=== PATIENT | female | born 1955 | race Caucasian/White ===

== ENCOUNTER → 2017-02-14 | Outpatient (CLI) | payer OTHER, BC ==
[~2017-02-14] MED LIST: AZEL30SP NAE; CALC500T83 PO; CEPH500C2 PO; CITA20TA9 PO; FEXO1TAB46 PO; LOSA50TA6 PO; MULT-506 PO; OXYC-57 PO; OXYC1TAB3 PO
== END | disposition home or self-care (01) ==
LOC: C.RDSM 13:46
PROVIDERS: ATTEND Physical Medicine & Rehabilitation Sports Medicine
DX: M13.841 Other specified arthritis, right hand (principal)

== ENCOUNTER → 2017-05-19 | Outpatient (CLI) | payer BC ==
--- NOTE | 2017-05-19 14:21 | MAMMOGRAPHY REPORT ---
BILATERAL DIGITAL SCREENING MAMMOGRAM TOMOSYNTHESIS WITH CAD: 05/19/2017 CLINICAL HISTORY: Routine screening. Patient has no complaints. TECHNIQUE: Breast tomosynthesis in addition to standard 2D mammography was performed. Current study was also evaluated with a Computer Aided Detection (CAD) system. COMPARISON: Comparison is made to exams dated: 05/14/2016 mammogram, 04/30/2015 mammogram, 02/25/2014 ma mmogram, 12/21/2013 mammogram, 02/20/2013 mammogram, and 02/17/2012 mammogram - [facility] nter. BREAST COMPOSITION: The tissue of both breasts is heterogeneously dense, which may obscure small mas ses. FINDINGS: No suspicious masses, calcifications, or areas of architectural distortion are noted in ei ther breast. There has been no significant interval change compared to prior exams. A linear scar ma rker denotes a scar on the left upper outer breast. IMPRESSION: ACR BI-RADS CATEGORY 2: BENIGN There is no mammographic evidence of malignancy. A 1 year screening mammogram is recommended. The pa tient will receive written notification of the results. Approximately 10% of breast cancers are not detected with mammography. A negative mammographic report should not delay biopsy if a clinically suggestive mass is present. Radha Arana M.D. /:05/19/2017 08:32:00 Human Services Assistant: Malgorzata Sadler, [facility] letter sent: Normal 1/2 BI-RADS Code: ACR BI-RADS Category 2: Benign
== END | disposition home or self-care (01) ==
LOC: C.MAMM 08:01
PROVIDERS: ATTEND Family Medicine
DX: Z12.31 Encounter for screening mammogram for malignant neoplasm of breast (principal)

== ENCOUNTER 2017-05-31 07:34 | Emergency (ER) | payer BC ==
[~2017-05-31] VITALS: Ht 158.8 cm; Wt 68.4 kg
[2017-05-31 07:36] VITALS: TEMP 36.5; Ht 158.8 cm; Wt 68.4 kg
[2017-05-31] MEDS ORDERED: ONDANSETRON INJ 2 MG/ML 2 ML VIAL IV STA (07:48)
[2017-05-31] MEDS: MoRPHine SULFATE 10 MG/ML CARP/VIAL IV PRN ×2 (07:58→10:09)
--- NOTE | 2017-05-31 08:27 | DIAGNOSTIC IMAGING REPORT ---
R WRIST MIN 3 VIEWS ROUTINE HISTORY: 61 years-old Female Trauma acute right wrist pain status post trauma. Initial exam. COMPARISON: Right finger radiograph 02/14/2017 TECHNIQUE: 3 views of the right wrist. FINDINGS: There is an acute impacted and comminuted fracture of the distal radial metaphysis with fracture lines extending into the distal radioulnar joint and also the radiocarpal joint medially. Impacted fracture fragments are seen displaced 5 mm volarly and 5 mm dorsally. 4 mm lateral displacement also noted. No significant angulation. Transverse fracture involving the base of the ulnar styloid is seen with 2 mm lateral displacement. Moderate associated soft tissue swelling. Mild to moderate degenerative changes are noted throughout the wrist and hand within the triscaphe, first carpometacarpal and imaged interphalangeal joints. IMPRESSION: 1. Acute impacted and mildly displaced comminuted fracture of the distal radial metaphysis with intra-articular extension into both the distal radioulnar and radiocarpal joints with moderate soft tissue swelling. 2. Transverse mildly displaced ulnar styloid fracture. The above report was generated using voice recognition software. It may contain grammatical, syntax or spelling errors. Electronically signed by: Damien Guillermo M.D. 05/31/2017 8:25 AM Dictated Date/Time: 05/31/2017 8:21 AM
[2017-05-31] MEDS ORDERED: LOSA50TA6 PO (08:36)
[2017-05-31] MEDS ORDERED: CITA20TA9 PO (08:36)
[2017-05-31] MEDS ORDERED: FEXO1TAB46 PO (08:36)
[2017-05-31] MEDS ORDERED: XYLOCAINE 1%/SOD BICARB 20 ML VIAL INFIL ONE (09:05)
--- NOTE | 2017-05-31 10:34 | Consultant Recommendations ---
Lamp Decorator Recommendations Date of Service May 31, 2017. Lamp Decorator Recommendations Sling to right arm at all times Keep splint on right arm at all times Ice to right wrist as needed for pain/swelling Elevate right wrist/arm above heart to relieve pain/swelling open and close fingers frequently to prevent stiffness No use of right arm/hand. Please call [phone] or go to the ED with any increased pain, swelling, numbness, tingling of right hand. Follow up with Dr. Looney as instructed. Our office will call with follow up date and time. Please call [phone] with any questions, concerns or need to reschedule appointment.
--- NOTE | 2017-05-31 10:37 | Procedure Note ---
Procedure Note Date of Service May 31, 2017. Procedure Note Procedure Note: Patient was identified. I was asked to do a hematoma block of her right distal radius fracture by Dr. Guidry. Risks/complications were discussed, verbal consent obtained. Time out performed. Site marked, cleansed with alcohol. I then injected, after blood return 8 cc of 1% lidocaine without epi into right distal radius fracture site. She tolerated the injection well. I then injected 2 cc 1% lidocaine around the distal ulna to provide adequate comfort for reduction. Closed reduction performed by Dr. Guidry, please see his consultation note for further details.
[2017-05-31] MEDS ORDERED: OXYC1TAB3 PO (11:02)
--- NOTE | 2017-05-31 11:09 | ORTHOPEDIC CONSULTATION ---
DATE OF CONSULTATION: 05/31/2017 HISTORY OF PRESENT ILLNESS: Mirian is a 61-year-old female. She fell in her home earlier today on an outstretched right upper extremity. She is right hand dominant. She had pain and swelling as well as a deformity. She came to the Emergency Room and was diagnosed of a fracture. She has a history of de Quervain release done by Dr. Looney, but has no prior history of hand traumatic injuries. She denies any tingling or numbness. PAST MEDICAL HISTORY: Significant for high blood pressure and depression. PAST SURGICAL HISTORY: Tonsils, tubes tied, hysterectomy, and right wrist de Quervain tendinitis. MEDICATIONS: Citalopram, fexofenadine, and losartan. ALLERGIES: AMOXICILLIN, FISH OIL, LATEX AND PENICILLINS. PHYSICAL EXAMINATION: She has tenderness and a mild deformity of the right wrist with a healed de Quervain tendinitis scar. She has good movement of the elbow flexion and extension. I did not check forearm rotation. Her forearm and fingers are nontender. She has tenderness of the distal radius. There is a minor abrasion on the volar aspect of her wrist. Median, radial and ulnar motor and sensory functions are intact. She has arthritic nodularity of her finger interphalangeal joints with 10-20 degree loss of extension. Composite flexion is only no more than 50%. Radial pulse is 1+. Capillary refill is less than 2 seconds. DIAGNOSTIC IMAGING: Radiographs show a mildly comminuted impacted dorsally displaced distal radius fracture. She has a loss of radial height, slight bit of ulnar positive variance and dorsal tilting on the lateral view. Verbal informed consent is obtained. A preprocedure timeout was performed. Local anesthetic 1% lidocaine plain was injected for hematoma block into the distal radius and ulnar styloid fracture. After adequate analgesia and administration of intravenous pain medication, fluoroscopic guidance was utilized to reduce the fracture. With traction and reduction maneuver, the fracture does reduce; however, it is not stable in that position and tends to shorten and resume an angulated posture. A reduction is performed. Splint is applied, but the reduction is unstable. There is persistent residual shortening and tilting dorsally. Her post-reduction neurovascular exam is intact. IMPRESSION: Right distal radius fracture. PLAN: Follow up in the office to discuss further treatment, which likely will include surgical intervention. This could include internal fixation, percutaneous pinning and external fixation. These options are briefly discussed with the patient. She could leave it as is; however, there could be further settling and derangement of alignment, which could affect the long-term outcome and function of the hand. Watch out for any significant swelling, pain, numbness, tingling or other problems or questions, contact the office or go to the Emergency Room. She can take anti-inflammatory and/or a pain medication for pain. We will hold her out of work. Use a sling, elevate, and ice. Followup will be arranged in the next few days in the office. MANDY
[2017-05-31 11:15] VITALS: BP 121/72; PULSE 61; O2SAT 97
--- NOTE | 2017-05-31 14:41 | EMERGENCY ROOM VISIT NOTE ---
History Report prepared by Sarah: Anibal Jiménez Under the Supervision of: Dr. Parth Jackson M.D. First contact with patient: 07:41 Chief Complaint: WRIST PAIN Stated Complaint: FELL, RT WRIST PAIN History of Present Illness The patient is a 61 year old female who presents to the Emergency Room with complaints of sudden right wrist pain occurring prior to arrival after a fall. The patient states that she dropped her tea this morning, and she slipped on it , and she fell on her right wrist trying to brace herself. The patient states that she has a scratch on her wrist as well. She states that she did not hurt anything else. The patient additionally has a history of a De Quervain's release surgery. Pt denies LOC, headache, fevers, chills, diaphoresis, visual changes, neck pain, chest pain, breathing difficulties, nausea, vomiting, abdominal pain, back pain, melena, hematochezia, urinary symptoms, numbness, weakness, lymphadenopathy, rash, or other complaints. Source of History: patient Onset: prior to arrival Position: wrist (right) Timing: other (sudden) Review of Systems See HPI for pertinent positives and negatives. A total of ten systems were reviewed and were otherwise negative. Past Medical & Surgical Surgical Problems: (1) S/P wrist surgery Social History Smoking Status: Never Smoker Marital Status: Occupation Status: employed Current/Historical Medications Scheduled Citalopram Hydrobromide (Celexa), 20 MG PO DAILY Fexofenadine Hcl (Felicitas), 180 MG PO DAILY Losartan Potassium (Cozaar), 50 MG PO DAILY Scheduled PRN Oxycodone Ir (Roxicodone Ir), 1-2 TAB PO Q4H PRN for Severe Pain Allergies Coded Allergies: Amoxicillin (Unverified Allergy, Unknown, RASH, 05/31/17) Fish Oil (Unverified Allergy, Unknown, ., 05/31/17) Latex1 -Allergic Contact Dermititis (Verified Allergy, Unknown, HIVES, ) Penicillins (Verified Allergy, Unknown, AMOXIL--RASH, 05/31/17) Physical Exam Vital Signs Date Time Temp Pulse Resp B/P (MAP) Pulse Ox O2 Delivery O2 Flow Rate FiO2 05/31/17 11:15 61 20 121/72 97 05/31/17 10:25 60 20 120/71 97 Room Air 05/31/17 08:30 60 20 120/63 96 Room Air 05/31/17 07:36 36.5 79 20 128/76 94 Room Air Physical Exam GENERAL: Awake, alert, uncomfortable appearing, mild distress HEAD: Normocephalic, atraumatic. No bellamy sign. No raccoon eyes. EYES: Normal conjunctiva. PERRL. EARS: External ears normal. NOSE: Atraumatic OROPHARYNX: Lips, tongue, and mucosa unremarkable. No erythema or exudate. NECK: No tracheal deviation or JVD. No posterior midline tenderness. No step offs noted. RESPIRATORY: CTA bilaterally CARDIAC: Regular rate, normal rhythm. ABDOMEN: Inspection reveals no abnormalities. Soft, non distended. No tenderness to palpation. No hernias. BACK: No midline step offs or tenderness to palpation. Unremarkable. PELVIS: Stable to rock. SKIN: Normal. LYMPH: No adenopathy. MUSCULOSKELETAL: Right upper extremity: Shoulder, elbow, proximal forearm, hand , and fingers examine normally. Obvious swelling and deformity of the right wrist. Tenderness over the distal radius and snuff box. No open wounds. Tiny abrasion of the volar wrist. Left upper and both lower extremities are atraumatic. NEURO: GCS 15. Normal sensorium. No sensory or motor deficits noted. Medical Decision & Procedures ER Provider Diagnostic Interpretation: Radiology results as stated below per my review and radiologist interpretation: R WRIST MIN 3 VIEWS ROUTINE HISTORY: 61 years-old Female Trauma acute right wrist pain status post trauma. Initial exam. COMPARISON: Right finger radiograph 02/14/2017 TECHNIQUE: 3 views of the right wrist. FINDINGS: There is an acute impacted and comminuted fracture of the distal radial metaphysis with fracture lines extending into the distal radioulnar joint and also the radiocarpal joint medially. Impacted fracture fragments are seen displaced 5 mm volarly and 5 mm dorsally. 4 mm lateral displacement also noted. No significant angulation. Transverse fracture involving the base of the ulnar styloid is seen with 2 mm lateral displacement. Moderate associated soft tissue swelling. Mild to moderate degenerative changes are noted throughout the wrist and hand within the triscaphe, first carpometacarpal and imaged interphalangeal joints. IMPRESSION: 1. Acute impacted and mildly displaced comminuted fracture of the distal radial metaphysis with intra-articular extension into both the distal radioulnar and radiocarpal joints with moderate soft tissue swelling. 2. Transverse mildly displaced ulnar styloid fracture. The above report was generated using voice recognition software. It may contain grammatical, syntax or spelling errors. Electronically signed by: Damien Guillermo M.D. 05/31/2017 8:25 AM Dictated Date/Time: 05/31/2017 8:21 AM Medications Administered Medications (Trade) Dose Ordered Sig/David Route Start Time Stop Time Status Last Admin Dose Admin Morphine Sulfate (MoRPHine SULFATE INJ) 8 mg Q1H PRN IV 05/31/17 08:00 05/31/17 11:33 DC 05/31/17 10:09 8 MG Ondansetron HCl (Zofran Inj) 4 mg NOW STAT IV 05/31/17 07:48 05/31/17 07:49 DC 05/31/17 07:48 4 MG Procedure Splinting Indication: fracture Verbal consent obtained. Risks and benefits were explained with the usual customary discussion. The injured extremity was identified. The patient was prepped and measured for the placement of a volar ortho-glass splint. Splint applied in the standard fashion over a layer of webril and secured using an elastic bandage. Set into a position of function. Normal neurovascular status after placement verified by me. The patient tolerated the procedure well and the care of the splint was discussed with the patient/family. No complications. ED Course 0741: The patient was evaluated in room B3. A complete history and physical exam was performed. 0748: Zofran Inj 4mg IV 0800: Morphine Sulfate 8mg IV 0803: I reevaluated the patient and splinted her. 0859: I discussed the patient's case with Dr. Guidry, Orthopedics, and he is going to come in to evaluate the patient. 0902: I reevaluated the patient, and she was doing well. 0905: Buffered Lidocaine 1% Inj 20ml 1009: Dr. Guidry is reducing her now after doing a hematoma block. 1053: I reevaluated her, and she was feeling better, and she was done with orthopedics. She will be discharged home. Medical Decision Triage Nursing notes reviewed and agree them. Additional history obtained from her . The patient's history was concerning for traumatic injury. Differential diagnosis: Etiologies such as fracture, dislocation, neurovascular compromise, compartment syndrome, soft tissue injury, as well as others were entertained. Physical examination: Consistent with an isolated right wrist injury. ER treatment provided: IV morphine IV Zofran Splinting On reassessment the patient felt better. Reduction by orthopedics Sling Diagnostics interpreted by me: Imaging studies: Xrays as above. Consultation: A consultation was placed with the orthopedist, Dr. Guidry. The case was discussed and diagnostics were reviewed. The patient was evaluated in the ER for further treatment. By the evaluation outlined above emergent etiologies such as open fracture, dislocation, neurovascular compromise, compartment syndrome, infections, as well as others were deemed relatively unlikely. The patient and were informed about the findings as listed above. All questions were answered and they were pleased with the treatment. Return instructions were outlined and the patient was discharged in stable condition. Prescription management: Oxy IR Referral: The patient was referred to [facility] for follow-up care. [place] Drug Monitoring Program Search Results: patient reviewed within database, no issues identified Medication Reconcilliation Current Medication List: was personally reviewed by me Blood Pressure Screening Patient's blood pressure: Normal blood pressure Consults Time Called: 805 Consulting Physician: Dr. Guidry, Orthopedics Returned Call: 08 I discussed the patient's case with Dr. Guidry, Orthopedics, and he is going to come in to evaluate the patient. Impression Primary Impression: Right wrist fracture Scribe Attestation The scribe's documentation has been prepared under my direction and personally reviewed by me in its entirety. I confirm that the note above accurately reflects all work, treatment, procedures, and medical decision making performed by me. Departure Information Dispostion Home / Self-Care Prescriptions Oxycodone Ir (Roxicodone Ir) 5 Mg Tab 1-2 TAB PO Q4H Y for Severe Pain, #24 TAB Prov: Parth Jackson MD 05/31/17 Referrals Osmin Guerrero M.D. (MEDICAL) (PCP) Forms HOME CARE DOCUMENTATION FORM, IMPORTANT VISIT INFORMATION, WORK / SCHOOL INSTRUCTIONS Patient Instructions My [facility] [address] Additional Instructions ORTHOPEDIC INSTRUCTIONS: DO NOT drive, drink alcohol, operate machinery, or perform dangerous activities today. You were given medications in the ER that can affect your ability to safely function or operate a vehicle. Oxycodone (OxyIR) 5mg: Take 1-2 pills every four hours for breakthrough pain. Avoid alcohol, operating machinery or dangerous equipment, working on ladders or roofs, DRIVING, or situations where being under the influence may be dangerous. It is recommended to use an [id number] stool softener such as Colace, 100mg twice daily while taking this medication to avoid constipation. Ibuprofen(Motrin, Advil) may be used for fever or pain. Use 600mg every six hours as needed. Take with food. Avoid using more than 2400mg in a 24 hour period. Do not use 2400mg per day for more than three consecutive days without physician direction. Prolonged inappropriate use can lead to stomach upset or ulcers. (AND/OR) Acetaminophen(Tylenol) may be used for fever or pain. Use 1000mg every six hours as needed. Avoid using more than 4000mg in a 24 hour period. Ice compresses for 20 minutes at a time four times daily for 2-3 days. Use the sling as instructed. Rest and elevate your injury. Do not get the splint wet. If your splint feels excessively tight, you have worsening pain, develop numbness or tingling, or your digits appear blue, loosen the suzi wrap. Then reapply the suzi wrap gently without removing the splint. If your symptoms are not quickly relieved return to the ER for re- evaluation. Return to the ER immediately for any numbness, tingling, severe pain, extreme swelling in the extremity or as needed. If you do not hear from Dr. Looney's office in the next 48 hours call [facility], [phone],to arrange follow up for your injury.
--- NOTE | 2017-05-31 16:01 | DIAGNOSTIC IMAGING REPORT ---
INTRAPROCEDURAL RIGHT WRIST 2 VIEWS CLINICAL HISTORY: POST REDUCTION COMPARISON STUDY: 05/31/2017 FINDINGS: 2 intraprocedural fluoroscopic spot images are provided for interpretation. The fine bony details obscured by an overlying fiberglass cast. 16 seconds of fluoroscopic time was utilized. Again evident is an intra-articular fracture of the distal radius. There is 5 degrees dorsal tilt of the radial articular surface. There is mild splaying of the fracture fragments. There is associated ulnar styloid fracture. IMPRESSION: Casted intra-articular fracture of the distal radius with an associated ulnar styloid fracture. Electronically signed by: Manuel Felipe M.D. 05/31/2017 4:00 PM Dictated Date/Time: 05/31/2017 3:59 PM
[2017-06-02] MEDS ORDERED: CALC500T83 PO (07:40)
[2017-06-02] MEDS ORDERED: MULT-506 PO (07:40)
[2017-06-02] MEDS ORDERED: AZEL30SP NAE (07:40)
[2017-06-02] MEDS ORDERED: CEPH500C2 PO (13:28)
[2017-06-02] MEDS ORDERED: OXYC-57 PO (13:28)
== END 2017-05-31 11:15 | disposition home or self-care (01) ==
LOC: C.EDB 07:36
DX: S52.611A Displaced fracture of right ulna styloid process, initial encounter for closed fracture (principal); S52.571A Other intraarticular fracture of lower end of right radius, initial encounter for closed fracture; S60.811A Abrasion of right wrist, initial encounter; W01.0XXA Fall on same level from slipping, tripping and stumbling without subsequent striking against object, initial encounter; Y92.009 Unspecified place in unspecified non-institutional (private) residence as the place of occurrence of the external cause; Z79.899 Other long term (current) drug therapy; I10 Essential (primary) hypertension; F32.9 Major depressive disorder, single episode, unspecified; Z98.51 Tubal ligation status; Z90.710 Acquired absence of both cervix and uterus

== ENCOUNTER → 2017-06-01 | Outpatient (CLI) | payer BC ==
[2017-06-01 17:09] LABS: BLOOD UREA NITROGEN 7 mg/dl (7-18); BUN/CREATININE RATIO 10.3 (10-20); CALCIUM 9.2 mg/dl (8.5-10.1); CARBON DIOXIDE 28 mmol/L (21-32); CHLORIDE 105 mmol/L (98-107); CREATININE 0.68 mg/dl (0.60-1.20); GLUCOSE 80 mg/dl (70-99); POTASSIUM 3.4 mmol/L (3.5-5.1); SODIUM 141 mmol/L (136-145)
[2017-06-01 17:49] LABS: BASO % 0.3 %; BASO ABS # 0.02 K/uL (0-0.2); COMPLETE YES; EOS % 1.3 %; HEMATOCRIT 40.9 % (37-47); IG% 0.2 %; LYMPH % 22.5 %; LYMPH ABS # 1.43 K/uL (1.2-3.4); MEAN CELL VOLUME 92.1 fL (80-100); MEAN CORPUSCULAR HEMOGLOBIN 29.5 pg (25-34); MONO % 11.2 %; NEUT % 64.5 %; RED BLOOD COUNT 4.44 M/uL (4.2-5.4); WHITE BLOOD COUNT 6.36 K/uL (4.8-10.8)
== END | disposition home or self-care (01) ==
LOC: C.CPL 15:49
PROVIDERS: ATTEND Physician Assistant
DX: S52.511A Displaced fracture of right radial styloid process, initial encounter for closed fracture (principal); X58.XXXA Exposure to other specified factors, initial encounter

== ENCOUNTER → 2017-06-01 | Outpatient (CLI) | payer BC, OTHER ==
--- NOTE | 2017-06-01 07:46 | DIAGNOSTIC IMAGING REPORT ---
R UPPER EXTREMITY WITHOUT HISTORY: 61 years-old Female WRIST FX follow-up study to assess right wrist fracture. History of trauma. COMPARISON: Right wrist radiographs 05/31/2017 TECHNIQUE: Multiple axial CT images of the right wrist were obtained without IV contrast. A dose lowering technique was used consistent with the principals of YONI. FINDINGS: Acute comminuted, impacted and mildly displaced fracture of the distal radius is again seen with fracture lines extending into the distal radial ulnar joint and also into the radiocarpal joint at the level of the scapholunate articulation. There is 5 mm lateral displacement, 6 mm dorsal displacement and 4 mm volar displacement. Acute transverse fracture involving the base of the lower styloid is noted with the distal fracture fragment displaced laterally 4 mm. Articular separation of 4 mm is seen involving the distal radius as seen on image 198 of series 2. There is mild cortical irregularity involving the dorsal aspect of the lunate as seen on image 169 of series 2 with adjacent 3 mm bone fragment suggesting small acute chip fracture. Lunate capitate articulation is preserved. The remaining carpal bones appear intact and are located. Mild degenerative changes are seen at the first carpal metacarpal joint and triscaphe joint. There is moderate soft tissue swelling about the wrist. IMPRESSION: 1. Acute comminuted, impacted and mildly displaced fracture of the distal radius is again seen with fracture lines extending into the distal radioulnar joint and also into the radiocarpal joint. 2. Acute minimally displaced ulnar styloid fracture. 3. Subtle tiny chip fracture of the dorsal lunate. No scaphoid fracture or additional carpal fracture identified. 4. Moderate soft tissue swelling. The above report was generated using voice recognition software. It may contain grammatical, syntax or spelling errors. Electronically signed by: Damien Guillermo M.D. 06/01/2017 7:45 AM Dictated Date/Time: 06/01/2017 7:37 AM
== END | disposition home or self-care (01) ==
LOC: C.CTS 06:55
PROVIDERS: ATTEND Physician Assistant
DX: S62.101A Fracture of unspecified carpal bone, right wrist, initial encounter for closed fracture (principal); X58.XXXA Exposure to other specified factors, initial encounter; S52.511A Displaced fracture of right radial styloid process, initial encounter for closed fracture

== ENCOUNTER → 2017-06-02 | Day surgery (SDC) | payer BC ==
[~2017-06-02] VITALS: Ht 157.5 cm; Wt 66.8 kg
[~2017-06-02] MED LIST changes: +ATROPINE SULFATE 0.1 MG/ML 5ML SYR IV PRN; +ATROPINE SULFATE 0.4 MG/ML 1 ML VIAL ONE; +BUPIVACAINE/EPINEPHRINE 0.5% MPF 1:200,000 30 ML VIAL ONE; +CEFAZOLIN 2000 MG/60 ML D5W IV SCH; +DEXAMETHASONE SOD INJ 4 MG/ML VIAL ONE; +EpHEDrine SULFATE INJ 50 MG/ML AMP IV PRN; +FENTANYL CITRATE INJ 50 MCG/1 ML 2 ML VIAL IV PRN; +FENTANYL CITRATE INJ 50 MCG/1 ML 2 ML VIAL ONE; +GLYCOPYRROLATE INJ 0.2 MG/ML VIAL ONE; +HYDROmorphone INJ 1 MG/ML SYR IV PRN; +LACTATED RINGER'S 1000ML 1,000 ML IV SCH; +LIDOCAINE HCL 1% MPF 2 ML VIAL ONE; +LIDOCAINE HCL 2% 2 ML VIAL (20MG/ML) ONE; +MEPERIDINE HCL 25 MG/ML CARP IV PRN; +MEPERIDINE HCL 25 MG/ML CARP ONE; +MIDAZOLAM HCL 1 MG/ML 2ML VIAL ONE; +NURSING VERBAL MED ORDER ONE; +ONDANSETRON INJ 2 MG/ML 2 ML VIAL IV PRN; +ONDANSETRON INJ 2 MG/ML 2 ML VIAL ONE; +OXYCODONE/ACETAMINOPHEN 5-325 TAB ONE; +OXYCODONE/ACETAMINOPHEN 5-325 TAB PO PRN; +PROMETHAZINE HCL INJ 12.5 MG in SODIUM CHLORIDE 0.9% 50ML 50 ML IV PRN; +PROPOFOL IV EMULSION 10 MG/ML 20 ML VIAL IV ONE; +ROPIVACAINE 0.5% 5 MG/ML 30 ML VIAL ONE; +SODIUM CHLORIDE 0.9% 1000ML 1,000 ML IV SCH
[2017-06-02 07:40] VITALS: Ht 157.5 cm; Wt 66.8 kg
--- NOTE | 2017-06-02 11:53 | History & Physical Bridge Note ---
H&P Re-Evaluation Bridge Note: I have examined the patient, reviewed the History & Physical and in the interval since the performance of the History & Physical I have noted the following changes of clinical significance: No changes noted
--- NOTE | 2017-06-02 11:57 | Discharge Instructions ---
Discharge Instructions Date of Service Jun 02, 2017. Visit Reason for Visit: Right Wrist Fracture/comminuted-intraarticular Discharge Discharge Diagnosis / Problem: same Discharge Goals Goal(s): Decrease discomfort, Improve function Medications Stopped Medications Name(s): na Restart Stopped Medication(s): use all scripts as directed Activity Recommendations Activity Limitations: as noted below Lifting Limitations: until after follow-up appointment Exercise/Sports Limitations: until after follow-up appointment May Resume Sexual Activity: when tolerated Shower/Bathe: keep incision dry Driving or Machine Use: Anesthesia . Post Anesthesia Instructions: If you have had General Anesthesia or IV Sedation: * Do not drive today. * Resume driving when surgeon permits. * Do not make important decisions or sign legal documents today. * Call surgeon for: 1. Temperature elevations greater than 101 degrees F. 2. Uncontrollable pain. 3. Excessive bleeding. 4. Persistent nausea and vomiting. 5. Medication intolerance (nausea, vomiting or rash). * For nausea and vomiting use only clear liquids such as: tea, soda, bouillon until nausea subsides, then gradually increase diet as tolerated. * If you have any concerns or questions, call your surgeon's office. If physician is unavailable and it is an emergency, call 911 or go to the nearest emergency room. . Instructions / Follow-Up Instructions / Follow-Up DIET: * Resume previous diet. MEDICATIONS: * Please take your prescriptions as instructed at your pre-op appointment and/ or see medication discharge instructions listed above. * If concerns develop, call your physician's office at . SPECIAL CARE INSTRUCTIONS: * Ice/Elevate as instructed. * Keep dressing clean, dry, intact. * Your surgical extremity may be discolored due to prepping agents used on the skin. A bluish-green tint is a normal variant and should not cause alarm. Call your doctor at [phone] if: * Temperature above 101 degrees * Pain not relieved by pain medicine ordered * There is increased drainage or redness from any incision * You have any unanswered questions, problems or concerns. FOLLOW UP VISIT: * If not already scheduled, please call the office at to schedule a follow-up appointment. Diet Recommendations Recommended Home Diet: resume previous diet Procedures Procedures Performed: see op note Pending Studies Studies pending at discharge: no Medical Emergencies . Who to Call and When: Medical Emergencies: If at any time you feel your situation is an emergency, please call 911 immediately. . Non-Emergent Contact Non-Emergency issues call your: Specialist Call Non-Emergent contact if: temperature is above 101.5, wound has increased drainage, wound has increased redness, wound has increased pain . . "Provider Documentation" section prepared by Lito Looney. .
--- NOTE | 2017-06-02 14:22 | [facility] Post Operative Brief Note ---
Immediate Operative Summary Operative Date Jun 02, 2017. Pre-Operative Diagnosis Right Wrist Fracture Post-Operative Diagnosis same Procedure(s) Performed Right Wrist Fracture Open Reduction Internal Fixation Versus Closed Reduction Pinning Surgeon Dr Lito Looney Biomedical Field Service Engineer Surgeon(s) Dr Valle, Fellow Estimated Blood Loss 50cc Findings severe fx/displaced Fluids (cc crystalloids) 1500cc Specimens none Drains none Anesthesia LMA/block Complication(s) None Disposition Recovery Room / PACU
--- NOTE | 2017-06-02 15:14 | OPERATIVE REPORT ---
DATE OF OPERATION: 06/02/2017 SURGEON: Dr. Looney. ASSOCIATE SALES REPRESENTATIVE: Yaquelin. PREOPERATIVE DIAGNOSIS: Displaced comminuted distal radius fracture, right dominant upper extremity. POSTOPERATIVE DIAGNOSIS: Same. OPERATION PERFORMED: Attempted closed reduction, open reduction, locking volar plate fixation, highly comminuted displaced distal radius fracture. PERIOPERATIVE SITUATION: Medically cleared female who has had intractable displacement despite attempted closed reduction in the ER has significant fracture comminution and displacement as documented by x-ray and CT scan. Wants to proceed with surgical treatment, options were discussed with her, detail consent obtained with all potential complications including failure to heal, displacement, shortening and numbness about the incision or carpal tunnel. PROCEDURE: The patient appropriately identified, site verified, consent verified, 2 grams of Ancef confirmed as being given. The right upper extremity was prepped and draped in usual routine fashion after extensive closed reduction, did not produce any successful closed reduction. The arm was, as I said prepped and draped in usual routine fashion with a tourniquet. The tourniquet was then inflated to 250 mmHg after exsanguination of limb with a rubber Esmarch bandage for a total of roughly 52 minutes. An FCR volar extended approach was made. Sharp dissection carried to skin and blunt dissection down to the fascia. This was then opened and care taken to protect the FCR and the radial artery. During this dissection, the patient kassie down and required some medication; however, after that she was fine. It was elected to proceed with the procedure as anesthesia thought everything was okay. Dissection was then carried down and the pronator quadratus was then opened up, the area of the fracture was highly comminuted and markedly displaced. The hematoma was then removed. The brachioradialis and the first dorsal compartment were elevated off the radial styloid fragment. This allowed things to be reduced anatomically. Plate was then provisionally placed and then adjusted and was in excellent position. It was then locked into place with a 12 mm, 2.4 locking shaft screw, 2.4 cortical shaft 12 mm screw, variable locking screws 16 x 3, 18 x 3 mm and the plate was a 2.4 variable angle locking plate 6-hole distally and 2 holes up the shaft. Once the plate was applied and all the screws applied, anatomic reduction was obtained. This was confirmed by multiplane fluoroscopy. The wound was then irrigated. The tourniquet was deflated. Minor bleeding points controlled with electrocautery. The wound was then irrigated one final time and closed with 2-0 and 3-0 Vicryl for the subcutaneous layer and simple mattress 3-0 nylon stitches for skin. Appropriate bulky dressing applied and then split, volar and dorsal fiberglass splints applied and patient transferred to recovery room in satisfactory condition having tolerated the procedure well. ESTIMATED BLOOD LOSS: 50 mL. CRYSTALLOID: 1500 mL. I attest to the content of the Intraoperative Record and any orders documented therein. Any exception s are noted below.
--- NOTE | 2017-06-02 16:20 | Progress Note ---
Progress Note Date of Service Jun 02, 2017. Progress Note Pt is a 61 yo f with PMH significant for HTN here for ORIF of R wrist. Called to OR 1 by Joslyn Bowen CRNA due to pt having sudden, severe sinus bradycardia to HR of 20s. Upon arrival to OR, pt has been given 0.4mg IV atropine and 0.4mg glycopyrrolate. Pt HR improved to high 30s low 40s. BP 110s/60s. Another 0.4mg IV of atropine was given and HR went up to 70s-80s. Pt maintained HR and BP throughout the rest of the procedure without any complications. secured entrance monitor showed sinus rhythm throughout. Pt now is in recovery and 12 lead EKG has been obtained showing NSR @ 91 with 1 PVC. No other arrhythmia seen. BP has been stable in PACU.
[2017-06-02 17:27] VITALS: BP 110/62; PULSE 84; TEMP 37.3; O2SAT 95
--- NOTE | 2017-06-02 17:29 | Anesthesia Progress Nt - [facility] ---
Anesthesia Post Op Note Date & Time Jun 02, 2017 at 17:25 Vital Signs Pain Intensity: 5 Vital Signs Past 12 Hours Date Time Temp Pulse Resp B/P (MAP) Pulse Ox O2 Delivery O2 Flow Rate FiO2 06/02/17 15:58 95 91 06/02/17 15:58 95 06/02/17 15:56 142/85 06/02/17 15:54 37.4 87 16 112/82 94 Room Air 06/02/17 15:53 85 14 06/02/17 15:53 86 14 91 06/02/17 15:51 112/82 06/02/17 15:48 79 14 94 06/02/17 15:48 77 14 06/02/17 15:46 132/78 06/02/17 15:43 89 15 95 06/02/17 15:43 89 15 06/02/17 15:41 128/79 06/02/17 15:38 73 22 06/02/17 15:38 72 22 96 06/02/17 15:36 129/69 06/02/17 15:33 89 18 83 06/02/17 15:33 89 18 06/02/17 15:31 136/75 06/02/17 15:28 94 16 06/02/17 15:28 95 16 95 06/02/17 15:26 132/75 06/02/17 15:23 77 20 06/02/17 15:23 77 20 100 06/02/17 15:21 144/76 06/02/17 15:18 91 23 06/02/17 15:18 90 23 100 06/02/17 15:17 121/80 06/02/17 15:13 86 22 06/02/17 15:13 86 22 96 06/02/17 15:11 126/70 06/02/17 15:08 89 24 96 06/02/17 15:08 89 24 06/02/17 15:06 117/90 06/02/17 15:04 103/75 06/02/17 15:03 107 22 06/02/17 15:03 106 22 94 06/02/17 14:58 116 25 06/02/17 14:58 106 25 78 06/02/17 14:53 110 21 95 06/02/17 14:53 110 21 06/02/17 14:48 101 20 06/02/17 14:48 99 20 95 06/02/17 14:43 90 17 134/81 95 06/02/17 14:43 91 17 06/02/17 14:38 86 15 06/02/17 14:38 86 15 94 06/02/17 14:36 111/62 06/02/17 14:33 86 17 95 06/02/17 14:33 86 17 06/02/17 14:31 92/61 06/02/17 14:29 36.2 85 16 92/53 93 Mask 6 06/02/17 12:28 71 16 100 06/02/17 12:28 70 16 06/02/17 12:27 68 7 06/02/17 12:27 66 7 98 06/02/17 12:26 114/68 06/02/17 12:25 64 12 99 06/02/17 12:25 66 12 06/02/17 12:24 66 17 97 06/02/17 12:24 65 17 06/02/17 12:21 111/72 06/02/17 12:19 68 18 06/02/17 12:19 68 18 96 06/02/17 12:16 127/80 06/02/17 12:14 83 19 06/02/17 12:14 85 19 99 06/02/17 12:13 78 19 06/02/17 12:13 77 19 100 06/02/17 12:12 139/82 06/02/17 11:40 36.7 82 16 133/94 (107) 96 Room Air Notes Mental Status: alert / awake / arousable, participated in evaluation Pt Amnestic to Procedure: Yes Nausea / Vomiting: adequately controlled Pain: adequately controlled Airway Patency, RR, SpO2: stable & adequate BP & HR: stable & adequate Hydration State: stable & adequate Anesthetic Complications: no major complications apparent Pt doing well. Awake, pain controlled. Discussed with patient and regarding intraop bradycardia. 12 lead EKG obtained in PACU shows sinus rhythm. Pt HR and BP has been stable throughout PACU. Pt and was told that if she has any issues and symptoms at home post op such as syncopal spells, dizziness, chest pain, to go to the ED. Also told patient and for patient to touch base with her PCP. Both patient and understand and agree with plan. Otherwise, pt is doing well without complaints.
== END | disposition home or self-care (01) ==
LOC: X.SURG 11:28
PROVIDERS: ATTEND Physical Medicine & Rehabilitation Sports Medicine
DX: S52.501A Unspecified fracture of the lower end of right radius, initial encounter for closed fracture (principal); W01.0XXA Fall on same level from slipping, tripping and stumbling without subsequent striking against object, initial encounter; I10 Essential (primary) hypertension; J45.909 Unspecified asthma, uncomplicated; F41.9 Anxiety disorder, unspecified; K21.9 Gastro-esophageal reflux disease without esophagitis

== ENCOUNTER → 2017-06-28 | Outpatient (CLI) | payer BC ==
[~2017-06-28] MED LIST changes: -ATROPINE SULFATE 0.1 MG/ML 5ML SYR IV PRN; -ATROPINE SULFATE 0.4 MG/ML 1 ML VIAL ONE; -BUPIVACAINE/EPINEPHRINE 0.5% MPF 1:200,000 30 ML VIAL ONE; -CEFAZOLIN 2000 MG/60 ML D5W IV SCH; -DEXAMETHASONE SOD INJ 4 MG/ML VIAL ONE; -EpHEDrine SULFATE INJ 50 MG/ML AMP IV PRN; -FENTANYL CITRATE INJ 50 MCG/1 ML 2 ML VIAL IV PRN; -FENTANYL CITRATE INJ 50 MCG/1 ML 2 ML VIAL ONE; -GLYCOPYRROLATE INJ 0.2 MG/ML VIAL ONE; -HYDROmorphone INJ 1 MG/ML SYR IV PRN; -LACTATED RINGER'S 1000ML 1,000 ML IV SCH; -LIDOCAINE HCL 1% MPF 2 ML VIAL ONE; -LIDOCAINE HCL 2% 2 ML VIAL (20MG/ML) ONE; -MEPERIDINE HCL 25 MG/ML CARP IV PRN; -MEPERIDINE HCL 25 MG/ML CARP ONE; -MIDAZOLAM HCL 1 MG/ML 2ML VIAL ONE; -NURSING VERBAL MED ORDER ONE; -ONDANSETRON INJ 2 MG/ML 2 ML VIAL IV PRN; -ONDANSETRON INJ 2 MG/ML 2 ML VIAL ONE; -OXYC1TAB3 PO; -OXYCODONE/ACETAMINOPHEN 5-325 TAB ONE; -OXYCODONE/ACETAMINOPHEN 5-325 TAB PO PRN; -PROMETHAZINE HCL INJ 12.5 MG in SODIUM CHLORIDE 0.9% 50ML 50 ML IV PRN; -PROPOFOL IV EMULSION 10 MG/ML 20 ML VIAL IV ONE; -ROPIVACAINE 0.5% 5 MG/ML 30 ML VIAL ONE; -SODIUM CHLORIDE 0.9% 1000ML 1,000 ML IV SCH
== END | disposition home or self-care (01) ==
LOC: C.MAMM 08:46
PROVIDERS: ATTEND Obstetrics & Gynecology
DX: Z13.820 Encounter for screening for osteoporosis (principal); M85.80 Other specified disorders of bone density and structure, unspecified site

== ENCOUNTER → 2017-07-04 | Outpatient (CLI) | payer BC ==
--- NOTE | 2017-07-04 09:19 | DIAGNOSTIC IMAGING REPORT ---
R WRIST MIN 3 VIEWS ROUTINE CLINICAL HISTORY: Right wrist fracture COMPARISON: 05/31/2017 DISCUSSION: The bones are osteopenic. The distal right radial fracture has been fixated with an anterior metallic plate and multiple screws. There is an ununited ulnar styloid fracture. The bones are osteopenic. IMPRESSION: Internally fixated distal radial fracture Electronically signed by: Manuel Felipe M.D. 07/04/2017 9:18 AM Dictated Date/Time: 07/04/2017 9:17 AM
== END | disposition home or self-care (01) ==
LOC: C.RDSM 09:15
PROVIDERS: ATTEND Physician Assistant
DX: S52.501D Unspecified fracture of the lower end of right radius, subsequent encounter for closed fracture with routine healing (principal); X58.XXXD Exposure to other specified factors, subsequent encounter

== ENCOUNTER → 2017-08-10 | Outpatient (CLI) | payer BC | END | disposition home or self-care (01) | LOC: C.RDSM 14:00 | PROVIDERS: ATTEND Physical Medicine & Rehabilitation Sports Medicine | DX: M13.841 Other specified arthritis, right hand (principal) ==

== ENCOUNTER → 2017-12-26 | Outpatient (CLI) | payer BC ==
[~2017-12-26] MED LIST changes: -CEPH500C2 PO; -OXYC-57 PO
== END | disposition home or self-care (01) ==
LOC: C.RDSM 14:26
PROVIDERS: ATTEND Physical Medicine & Rehabilitation Sports Medicine
DX: M13.841 Other specified arthritis, right hand (principal); S52.579 Other intraarticular fracture of lower end of unspecified radius; X58.XXXD Exposure to other specified factors, subsequent encounter; G56.01 Carpal tunnel syndrome, right upper limb